=== PATIENT | female | born 1965 | race American Indian/Alaskan Native ===

== ENCOUNTER 2019-09-03 07:46 | Day surgery (SDC) | payer BC ==
[~2019-09-03 07:46] MED LIST: SODIUM CHLORIDE 0.9% 1000 ML 1,000 ML IV SCH
[2019-09-03] MEDS ORDERED: LIDOCAINE MPF (2%) 20 MG/1 ML VIAL 5 ML ONE (08:00)
--- NOTE | 2019-09-03 08:35 | Anesthesia Consultation ---
Anesthesia Consult and Med Hx Date of service: 09/03/19 - Airway Anesthetic Teeth Evaluation: Good ROM Head & Neck: Adequate Mental/Hyoid Distance: Adequate Mallampati Class: Class III Intubation Access Assessment: Possibly Difficult - Pre-Operative Health Status ASA Pre-Surgery Classification: ASA3 Proposed Anesthetic Plan: MAC - Pulmonary Hx Smoking: Yes (3 cigs/day) Hx Asthma: Yes (bronchitis in past) Hx Respiratory Symptoms: No SOB: No COPD: No Home Oxygen Therapy: No Hx Pneumonia: No Hx Sleep Apnea: Yes - Cardiovascular System Hx Hypertension: Yes Hx Coronary Artery Disease: No Hx Heart Attack/AMI: No Hx Angina: No Hx Percutaneous Transluminal Coronary Angioplasty (PTCA): No Hx Cardia Arrhythmia: Yes (pt states "I have a bundle branch block") Hx Pacemaker: No Hx Internal Defibrillator: No Hx Valvular Heart Disease: No Hx Heart Murmur: No Hx Peripheral Vascular Disease: No - Central Nervous System Hx Neuromuscular Disorder: No Hx Seizures: No CVA: No Hx Back Pain: Yes Hx Psychiatric Problems: No - Gastrointestinal Hx Ulcer: No Hx Gastroesophageal Reflux Disease: Yes - Endocrine Hx Renal Disease: No Hx End Stage Renal Disease: No Hx Cirrhosis: No Hx Liver Disease: No Hx Insulin Dependent Diabetes: No Hx Non-Insulin Dependent Diabetes: No Hx Thyroid Disease: No Hx Hypothyroidism: No Hx Hyperthyroidism: No - Hematic Hx Anemia: No Hx Sickle Cell Disease: No - Other Systems Hx Alcohol Use: No Hx Substance Use: No Hx Cancer: No Hx Obesity: Yes
--- NOTE | 2019-09-03 08:39 | Anesthesia Day of Surgery ---
Anesthesia Day of Surgery - Day of Surgery Patient Examined: Yes Patient H&P Reviewed: Yes Patient is NPO: Yes
[2019-09-03] MEDS ORDERED: MIDAZOLAM 2 MG/2 ML INJ ONE (09:48)
[2019-09-03] MEDS ORDERED: propofoL 200 MG/20 ML VIAL IV ONE ×4 (09:48→10:28)
[2019-09-03 10:47] VITALS: BP 124/82
--- NOTE | 2019-09-03 10:52 | Procedure Note ---
Date of procedure: 09/03/19 Pre-op diagnosis: GERD/ Dyspepsia/ Abdominal Pain/ Colitis Post-op diagnosis: other (Mild to Moderate Erosive Esophagitis/ Gastritis/ R/O Celiac Disease/ R/O Eosinophilic Esophagitis/ Recto-Sigmopid Polyps/ R/O Microscopic Colitis/ R/O Ileitis/ Few Diverticuli/ Mild to moderate, Internal Hemorrhoids) Procedure: EGD with Biopsy and Colonoscopy with Hot, Snare Polypectomy and Cold Biopsy Anesthesia: [facility] [place] Surgeon: AISHA SONG Estimated blood loss: minimal Pathology: list Specimen disposition: to lab Condition: stable Disposition: same day (Treat with PPI and prn Bentl, use OYC Probiotic, encourage fiber intake. Avoid aspirin and NSAID for 5 days; otherwise resume home medication and rfollow up in 1 to 2 weeks ([phone]).)
--- NOTE | 2019-09-03 10:55 | Operative Report ---
PROCEDURE: EGD with biopsy. INDICATIONS: This is a 54-year-old slightly obese -[place] female who has been having GERD symptoms and dyspeptic symptoms. EGD was done to assess for the problem. DESCRIPTION OF PROCEDURE: The procedure was done after getting informed consent with MAC anesthesia. Instrument was passed through the hypopharynx into the esophagus, which showed some mild to moderate distal erosive esophagitis. Stomach showed gastritis. No ulcers were noted in the straight of the retroverted view. The pylorus was patent. The duodenum in the first and second portion appeared normal. Biopsy was done from the second part to rule out for possible celiac disease. Additional biopsy was done from the gastric antrum, gastric body and angular incisura to rule out for H. pylori and atrophic gastritis and biopsy was also done from the distal esophagus and the mid esophagus to assess for the severity of the erosive esophagitis and to rule out for eosinophilic esophagitis. There was minimal bleeding associated with the procedure. No complications associated with the procedure. ASSESSMENT: Gastroesophageal reflux disease symptoms, mild to moderate erosive esophagitis, gastritis, rule out celiac disease, rule out eosinophilic esophagitis. PLAN: To treat the patient with PPI and a p.r.n. dose of Bentyl. Have the patient avoid aspirin and aspirin-related products for the next few days, to do a colonoscopy for further assessment for any colon polyps or associated colitis that the patient had been complaining of from before. The patient will be asked to resume home medications except for aspirin and aspirin-related products and follow up in the office in 1-2 weeks' time. Procedure was done in the GI lab with the assistance of the GI lab team, which included DINO Hogan, elvira Looney and with assistance of anesthesia. JOB# [id number] COSME/PADILLA
--- NOTE | 2019-09-03 11:01 | Operative Report ---
PROCEDURE: Colonoscopy with cold biopsy and hot snare polypectomy. INDICATIONS: This is a 54-year-old slightly obese -[place] female who had been complaining of GERD symptoms and dyspepsia and had an EGD done which showed [id number] distal erosive esophagitis and gastritis. Biopsy was also done to rule out for eosinophilic esophagitis and celiac disease. Colonoscopy was done. She gives a history of colitis. The procedure was done after getting informed consent with MAC anesthesia. Initial rectal exam was unremarkable. Instrument was passed through the rectum onto the cecum, which was identified with ileocecal valve and appendiceal orifice. The terminal ileum was intubated and showed normal mucosa. Biopsy was done to rule out for possible ileitis. Cecum, ascending colon, and most of the transverse colon showed normal mucosa. There were a few minor diverticula noted in the left colon and few polyps in the rectosigmoid area, most possibly hyperplastic. These were removed by cold biopsy. One was removed by hot snare polypectomy and retrieved. Random biopsies were done throughout the colon to rule out for possible microscopic colitis with minimal bleeding and the rectum showed mild to moderate internal hemorrhoid on the retroverted view. There was minimal bleeding associated with the procedure. No complications associated with the procedure. ASSESSMENT: Abdominal pain, rule out microscopic colitis, rule out ileitis. Multiple rectosigmoid polyps that were removed, few minor diverticula and [id number] internal hemorrhoid. PLAN: To treat the patient with PPI because of the EGD findings of esophagitis and Bentyl for abdominal pain. The patient will be encouraged to take fiber supplements and avoid aspirin and aspirin-related products for the next few days. [id number] diarrhea medication will also be suggested to be used if needed and the patient is asked to follow up in the office in 1-2 weeks' time. The patient may resume home medication, but avoid aspirin and aspirin-related products for the next 4-5 days. The procedure was done in the GI lab with assistance of the GI lab team, which included elvira Arechiga and with assistance of anesthesia. JOB# [id number] COSME/PADILLA
--- NOTE | 2019-09-03 13:42 | Post Anesthesia Evaluation ---
- Post Anesthesia Evaluation Patient Participated: Yes Airway Patent: Yes Stable Respiratory Function: Yes Nausea/Vomiting: No Temp > 96.8F: Yes Pain Manageable: Yes Adequeate Hydration: Yes Anesthesia Complications: No
== END 2019-09-03 07:47 | disposition home or self-care (01) ==
LOC: GIO 07:46
DX: R10.32 Left lower quadrant pain (principal); K21.9 Gastro-esophageal reflux disease without esophagitis; K30 Functional dyspepsia; K31.89 Other diseases of stomach and duodenum; K63.89 Other specified diseases of intestine; K57.30 Diverticulosis of large intestine without perforation or abscess without bleeding; K62.1 Rectal polyp; K63.5 Polyp of colon; K64.8 Other hemorrhoids; K29.70 Gastritis, unspecified, without bleeding; E66.9 Obesity, unspecified; F17.210 Nicotine dependence, cigarettes, uncomplicated; I10 Essential (primary) hypertension; J45.909 Unspecified asthma, uncomplicated; G47.30 Sleep apnea, unspecified; Z88.6 Allergy status to analgesic agent; Z79.899 Other long term (current) drug therapy; Z68.29 Body mass index [BMI] 29.0-29.9, adult
CPT/HCPCS: 43239; 45380; 45385; 88305; 88312; 88342; J2250; J2704; J7030